=== PATIENT | male | born 1980 | race Caucasian/White ===

== ENCOUNTER 2018-06-05 02:36 | Emergency (ER) | payer OTHER ==
[2018-06-05 02:55] VITALS: BP 156/84; PULSE 68; RESP 18; TEMP 98.1
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
[2018-06-05] MEDS ORDERED: MORPHINE SULFATE 4 MG/ML SYRINGE IM STA (03:15)
== END 2018-06-05 03:54 | disposition other institution (70) ==
LOC: EC 02:36
DX: T23.202A Burn of second degree of left hand, unspecified site, initial encounter (principal); T31.0 Burns involving less than 10% of body surface; Z87.891 Personal history of nicotine dependence; Z53.29 Procedure and treatment not carried out because of patient's decision for other reasons; X19.XXXA Contact with other heat and hot substances, initial encounter; Y92.69 Other specified industrial and construction area as the place of occurrence of the external cause; Y99.0 Civilian activity done for income or pay
CPT/HCPCS: 99284

== ENCOUNTER 2022-04-29 20:28 | Emergency (ER) | payer MEDICAID ==
[2022-04-29 20:57] VITALS: BP 134/74; PULSE 87; RESP 16; TEMP 98.2
--- NOTE | 2022-04-29 22:28 | ED ---
General Adult HPI - General Chief complaint: Extremity Problem,Nontraumatic Stated complaint: Elbow Pain Time Seen by Provider: 04/29/22 22:10 Source: patient Mode of arrival: ambulatory Limitations: no limitations - History of Present Illness Initial comments: Dictation was produced using [employer] dictation software. please excuse any grammatical, word or spelling errors. Chief Complaint: 42-year-old male presents with right elbow pain History of Present Illness: Patient is a 42-year-old male he presents emergency department with worsening right elbow pain. 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 Patient states that he's been having worsening lateral elbow pain. States that it's worse whenever he tries to lift or pronate and supinate his hand. Denies any trauma to the elbow. The ROS documented in this emergency department record has been reviewed and confirmed by me. Those systems with pertinent positive or negative responses have been documented in the HPI. All other systems are other negative and/or noncontributory. PHYSICAL EXAM: General Impression: Alert and oriented x3, not in acute distress HEENT: Normocephalic atraumatic, extra-ocular movements intact, pupils equal and reactive to light bilaterally, mucous membranes moist. Cardiovascular: Heart regular rate and rhythm Chest: Able to complete full sentences, no retractions, no tachypnea Musculoskeletal: no peripheral edema Right upper extremity: Palpatory tenderness over the lateral upper condyle, pain is reproduced with pronation and supination. It is worse with pronation Motor: no focal deficits noted Neurological: CN II-XII grossly intact, no focal motor or sensory deficits noted Skin: Intact with no visualized rashes Psych: Normal affect and mood ED course: 42 y old male presents emergency department with clinical presentation consistent with lateral epicondylitis. Vital Signs upon arrival are within acceptable limits. X-rays unremarkable. Patient given Tylenol 3 starter pack. Patient advised to rest his right upper extremity. He is given a work note. Patient also given by mouth analgesics starter pack. - Related Data Allergies Allergy/AdvReac Type Severity Reaction Status Date / Time No Known Allergies Allergy Verified 04/29/22 20:54 Review of Systems ROS Statement: Those systems with pertinent positive or pertinent negative responses have been documented in the HPI. ROS Other: All systems not noted in ROS Statement are negative. Past Medical History Past Medical History: No Reported History History of Any Multi-Drug Resistant Organisms: None Reported Additional Past Surgical History / Comment(s): Ear sugery and right hand surgey Past Psychological History: No Psychological Hx Reported Smoking Status: Never smoker Past Alcohol Use History: Occasional, Rare Past Drug Use History: None Reported General Exam Limitations: no limitations Course Vital Signs 04/29/22 20:55 Temperature 98.2 F Pulse Rate 87 Respiratory 16 Rate Blood Pressure 134/74 O2 Sat by Pulse 98 Oximetry Disposition Clinical Impression: Epicondylitis Disposition: HOME SELF-CARE Condition: Good Instructions (If sedation given, give patient instructions): Tennis Elbow (ED) Is patient prescribed a controlled substance at d/c from ED?: No Referrals: Nonstaff,Physician [Primary Care Provider] - 1-2 days Time of Disposition: 22:50
[2022-04-29] MEDS ORDERED: ACET/COD 300 MG/30 MG STARTER PACK 6 TAB BTL PO STA (22:49)
--- NOTE | 2022-04-29 23:15 | XR ---
EXAMINATION TYPE: XR elbow complete RT DATE OF EXAM: 04/29/2022 COMPARISON: NONE HISTORY: Pain TECHNIQUE: 3 views FINDINGS: There is spurring of the olecranon process of the ulna. I see no fracture nor dislocation. No sign of joint effusion. IMPRESSION: No acute abnormality of the right elbow. No fracture.
== END 2022-04-29 23:04 | disposition home or self-care (01) ==
LOC: EC 20:28
DX: M77.11 Lateral epicondylitis, right elbow (principal)
CPT/HCPCS: 99283